=== PATIENT | female | born 1950 | race Caucasian/White ===

== ENCOUNTER → 2024-10-07 | Outpatient (CLI) | payer MEDICARE, SELFPAY ==
[2024-10-07 16:06] LABS: AST(SGOT) 23 U/L (<=31); Alanine Aminotransfer ALT/SGPT 29 U/L (<=34); Albumin, Serum 4.4 g/dL (3.4-4.8); Alkaline Phosphatase 56 U/L (35-104); Anion Gap 12 (5-15); BUN 13 mg/dL (4-19); BUN/Creat Ratio 15.8 RATIO (10-20); Calcium,Total 9.3 mg/dL (7.6-11.0); Carbon Dioxide 23.8 mmol/L (21.0-32.0); Chloride 108 mmol/L (98-108); Cholesterol 187 mg/dL (<=200); Globulin 2.9 g/dL (2.2-4.2); Glucose 88 mg/dL (70-99); Low Density Lipoprotein Calc. 105 mg/dL; Potassium 4.5 mmol/L (3.3-5.1); Triglycerides 159 mg/dL; Very Low Density Lipoprotein 32 mg/dL (5-40); cholesterol:hdl ratio screen 3.72
== END | disposition home or self-care (01) ==
PROVIDERS: PCP Family Medicine; Referring Provider Family Medicine; Visit Provider Family Medicine
DX: E78.5 Hyperlipidemia, unspecified (principal)
CPT/HCPCS: 36415; 80053; 80061